=== PATIENT | female | born 1995 | race American Indian/Alaskan Native ===

== ENCOUNTER 2016-11-19 21:04 | Inpatient (IN) | payer OTHER ==
[2016-11-19 22:20] LABS: Basophils % (Auto) 0.9 % (0.0-1.8); Eosinophils % (Auto) 1.2 % (0.0-4.3); Hematocrit 20.8 % (30.3-42.9); Hemoglobin 6.4 gm/dl (10.1-14.3); Mean Corpuscular HGB Conc 31 % (30-34); Mean Corpuscular Volume 75 fl (79-97); Platelet Count 327 K/mm3 (140-440); Red Blood Count 2.77 M/mm3 (3.65-5.03); Red Cell Distribution Width 18.1 % (13.2-15.2); White Blood Count 9.1 K/mm3 (4.5-11.0)
[2016-11-19 22:24] LABS: Mean Corpuscular Hemoglobin 23 pg (28-32)
[2016-11-19 22:31] LABS: INR 1.04 (0.87-1.13)
[2016-11-19 22:32] LABS: BUN/Creatinine Ratio 17.77; Blood Urea Nitrogen 16 mg/dL (7-17); Calcium 8.8 mg/dL (8.4-10.2); Carbon Dioxide 23 mmol/L (22-30); Glucose 108 mg/dL (65-100); Partial Thromboplastin Time 30.5 Sec. (24.2-36.6); Potassium 4.2 mmol/L (3.6-5.0); Sodium 138 mmol/L (137-145)
[2016-11-19 22:45] LABS: Anion Gap 18 mmol/L
[2016-11-20] MEDS ORDERED: NACL 0.9% 500 ML 500 ML IV ONE (02:57)
--- NOTE | 2016-11-20 03:23 | Emergency Department Report ---
HPI - General Chief Complaint: Vaginal Bleeding Time Seen by Provider: 11/20/16 02:44 - HPI HPI: Room 22 The patient is a 21-year-old female presenting with a chief complaint of vaginal bleeding. The patient states she has a history of dysfunctional vaginal bleeding has had heavy vaginal bleeding since May 2016. The patient states she goes to approximate 24 pads per day. She states she came to the emergency department because 4 weeks she has had shortness of breath and for the last 3 days she has had dysuria and rectal pain with bowel movements. Patient states she developed intermittent chest pain today Location: [see above] Duration: [see above] Quality: Pain Severity: Moderate Modifying factors: [see above] Context: [see above] Mode of transportation: [not driving] ED Past Medical Hx - Past Medical History Hx Arthritis: Yes (ra) Hx Headaches / Migraines: Yes Hx Asthma: Yes - Surgical History Past Surgical History?: No - Family History Family history: no significant - Social History Smoking Status: Never Smoker Substance Use Type: None - Medications Home Medications: Home Medications Medication Instructions Recorded Confirmed Last Taken Type ALBUTEROL NEB's [Proventil 0.083%] 2.5 mg IH TID PRN 07/13/14 07/13/14 06/23/14 History Albuterol Sulfate [Proventil HFA] 1 - 2 puff IH Q4H PRN 07/13/14 07/13/14 History Albuterol Sulfate [Ventolin HFA] 2 puff IH Q4H PRN 07/13/14 07/13/14 07/06/14 History Montelukast [Singulair] 10 mg PO QPM 07/13/14 07/13/14 07/11/14 History Naproxen [Naprosyn] 500 mg PO BID 07/13/14 07/13/14 07/08/14 History medroxyPROGESTERone ACETATE 10 mg PO QDAY #5 tablet 07/14/14 Unknown Rx [Provera] ED Review of Systems ROS: Stated complaint: CP/VAGINAL BLEED Other details as noted in HPI Comment: All other systems reviewed and negative Constitutional: denies: chills, fever Eyes: denies: eye pain, eye discharge, vision change ENT: denies: ear pain, throat pain Respiratory: shortness of breath Cardiovascular: chest pain Endocrine: no symptoms reported Gastrointestinal: denies: abdominal pain, nausea, diarrhea Genitourinary: dysuria, abnormal menses Musculoskeletal: denies: back pain, joint swelling, arthralgia Skin: denies: rash, lesions Neurological: denies: headache, weakness, paresthesias Psychiatric: denies: anxiety, depression Hematological/Lymphatic: denies: easy bleeding, easy bruising Physical Exam - Physical Exam Vital Signs: Vital Signs 11/19/16 11/20/16 21:18 03:06 Temperature 98.4 F 98.8 F Pulse Rate 105 H 99 H Respiratory 20 20 Rate Blood Pressure 148/93 Blood Pressure 129/83 [Left] O2 Sat by Pulse 98 100 Oximetry Physical Exam: GENERAL: The patient is well-developed well-nourished female lying on stretcher appearing pale but in no acute distress. [] HEENT: Normocephalic. Atraumatic. Extraocular motions are intact. Patient has moist mucous membranes. NECK: Supple. Trachea midline CHEST/LUNGS: Clear to auscultation. There is no respiratory distress noted. HEART/CARDIOVASCULAR: Regular. There is no tachycardia. There is no gallop rub or murmur. ABDOMEN: Abdomen is soft, with mild discomfort to the lower right pelvis. Patient has normal bowel sounds. There is no abdominal distention. SKIN: There is no rash. There is no edema. There is no diaphoresis. NEURO: The patient is awake, alert, and oriented. The patient is cooperative. The patient has normal speech MUSCULOSKELETAL: There is no evidence of acute injury. PELVIC: Small to moderate amount of dark blood in the vaginal vault ED Course Vital Signs 11/19/16 11/20/16 21:18 03:06 Temperature 98.4 F 98.8 F Pulse Rate 105 H 99 H Respiratory 20 20 Rate Blood Pressure 148/93 Blood Pressure 129/83 [Left] O2 Sat by Pulse 98 100 Oximetry ED Medical Decision Making - Lab Data Result diagrams: 11/19/16 21:51 11/19/16 21:51 Laboratory Tests 11/19/16 11/19/16 11/19/16 21:51 21:51 21:51 WBC 9.1 RBC 2.77 L Hgb 6.4 L Hct 20.8 L MCV 75 L MCH 23 L MCHC 31 RDW 18.1 H Plt Count 327 Lymph % (Auto) 25.6 [place] % (Auto) 8.6 H Eos % (Auto) 1.2 Baso % (Auto) 0.9 Lymph # 2.3 [place] # 0.8 Eos # 0.1 Baso # 0.1 Seg Neutrophils % 63.7 Seg Neutrophils # 5.8 PT 13.5 INR 1.04 APTT 30.5 Sodium 138 Potassium 4.2 Chloride 101.0 Carbon Dioxide 23 Anion Gap 18 BUN 16 Creatinine 0.9 Estimated GFR > 60 BUN/Creatinine Ratio 17.77 Glucose 108 H Calcium 8.8 Troponin T < 0.010 HCG, Qual 11/20/16 11/20/16 00:26 01:15 WBC RBC Hgb Hct MCV MCH MCHC RDW Plt Count Lymph % (Auto) [place] % (Auto) Eos % (Auto) Baso % (Auto) Lymph # [place] # Eos # Baso # Seg Neutrophils % Seg Neutrophils # PT INR APTT Sodium Potassium Chloride Carbon Dioxide Anion Gap BUN Creatinine Estimated GFR BUN/Creatinine Ratio Glucose Calcium Troponin T < 0.010 HCG, Qual Negative Laboratory Tests 11/19/16 11/19/16 11/19/16 21:51 21:51 21:51 WBC 9.1 RBC 2.77 L Hgb 6.4 L Hct 20.8 L MCV 75 L MCH 23 L MCHC 31 RDW 18.1 H Plt Count 327 Lymph % (Auto) 25.6 [place] % (Auto) 8.6 H Eos % (Auto) 1.2 Baso % (Auto) 0.9 Lymph # 2.3 [place] # 0.8 Eos # 0.1 Baso # 0.1 Seg Neutrophils % 63.7 Seg Neutrophils # 5.8 PT 13.5 INR 1.04 APTT 30.5 Sodium 138 Potassium 4.2 Chloride 101.0 Carbon Dioxide 23 Anion Gap 18 BUN 16 Creatinine 0.9 Estimated GFR > 60 BUN/Creatinine Ratio 17.77 Glucose 108 H Calcium 8.8 Troponin T < 0.010 HCG, Qual Urine Color Urine Turbidity Urine pH Ur Specific [place] Urine Protein Urine Glucose (UA) Urine Ketones Urine Blood Urine Nitrite Urine Bilirubin Urine Urobilinogen Ur Leukocyte Esterase Urine WBC (Auto) Urine RBC (Auto) U Epithel Cells (Auto) Urine WBC Clumps Blood Type Antibody Screen Crossmatch 11/20/16 11/20/16 11/20/16 00:26 01:15 03:06 WBC RBC Hgb Hct MCV MCH MCHC RDW Plt Count Lymph % (Auto) [place] % (Auto) Eos % (Auto) Baso % (Auto) Lymph # [place] # Eos # Baso # Seg Neutrophils % Seg Neutrophils # PT INR APTT Sodium Potassium Chloride Carbon Dioxide Anion Gap BUN Creatinine Estimated GFR BUN/Creatinine Ratio Glucose Calcium Troponin T < 0.010 HCG, Qual Negative Urine Color Red Urine Turbidity Turbid Urine pH 6.0 Ur Specific [place] 1.024 Urine Protein 100 mg/dl Urine Glucose (UA) 50 Urine Ketones Tr Urine Blood Lg Urine Nitrite Neg Urine Bilirubin Neg Urine Urobilinogen < 2.0 Ur Leukocyte Esterase Sm Urine WBC (Auto) > 182.0 H Urine RBC (Auto) > 182.0 U Epithel Cells (Auto) 17.0 H Urine WBC Clumps 3+ Blood Type Antibody Screen Crossmatch 11/20/16 11/20/16 03:33 03:33 WBC RBC Hgb Hct MCV MCH MCHC RDW Plt Count Lymph % (Auto) [place] % (Auto) Eos % (Auto) Baso % (Auto) Lymph # [place] # Eos # Baso # Seg Neutrophils % Seg Neutrophils # PT INR APTT Sodium Potassium Chloride Carbon Dioxide Anion Gap BUN Creatinine Estimated GFR BUN/Creatinine Ratio Glucose Calcium Troponin T < 0.010 HCG, Qual Urine Color Urine Turbidity Urine pH Ur Specific [place] Urine Protein Urine Glucose (UA) Urine Ketones Urine Blood Urine Nitrite Urine Bilirubin Urine Urobilinogen Ur Leukocyte Esterase Urine WBC (Auto) Urine RBC (Auto) U Epithel Cells (Auto) Urine WBC Clumps Blood Type A POSITIVE Antibody Screen Negative Crossmatch See Detail - EKG Data -: EKG Interpreted by Me EKG shows normal: sinus rhythm Rate: tachycardia (117 bpm) - EKG Data When compared to previous EKG there are: previous EKG unavailable Interpretation: other (no ischemic changes seen) - Radiology Data Radiology results: report reviewed (pelvic ultrasound), image reviewed (pelvic ultrasound) Pelvic ultrasound (read by radiologist)-there is a small cyst on the left ovary this measures 17 mm. Slightly thickened endometrial pattern near the lower uterine segment cervical canal region. No identifiable masses. - Differential Diagnosis menorrhagia, symptomatic anemia, UTI Critical care attestation.: If time is entered above; I have spent that time in minutes in the direct care of this critically ill patient, excluding procedure time. ED Disposition Clinical Impression: Menorrhagia, Symptomatic anemia, UTI (urinary tract infection), Dysuria Disposition: OP ADMITTED IP TO THIS HOSP Is pt being admited?: Yes Does the pt Need Aspirin: No Condition: Fair Referrals: SAYDA RANGEL [Other] - 3-5 Days Time of Disposition: 05:23 (BARREL TURNER paged)
[2016-11-20 03:46] LABS: Bilirubin,Urine NEG (Negative); Blood,Urine LG (Negative); Ketones,Urine TR mg/dL (Negative); Leukocyte Esterase,Urine SM (Negative); Nitrite,Urine NEG (Negative); RBC,Urine > 182.0 /HPF (0.0-6.0); Urobilinogen,Urine < 2.0 mg/dL (<2.0); WBC,Urine > 182.0 /HPF (0.0-6.0)
[2016-11-20] MEDS ORDERED: ROCEPHIN/NS 1 GM/50 ML 50 ML IV ONE (04:37)
--- NOTE | 2016-11-20 05:07 | Ultrasound Report ---
FINAL REPORT PROCEDURE: US TRANSVAGINAL TECHNIQUE: Real-time transabdominal sonography in multiple planes of the pelvis was performed. The pelvic structures, especially the ovaries were not optimally visualized. Transvaginal sonography was then performed to better evaluate the structures and/or abnormalities described below with image documentation. CPT 32975 and 63667 HISTORY: heavy vaginal bleeding COMPARISON: No prior studies are available for comparison. FINDINGS: UTERUS Size: 7.7 x 3.6 x 4.1 cm. Endometrial thickness: 5 mm. Slightly thickened endometrium near the lower uterine segment and cervical canal region. Orientation: anteverted. Cervix: Normal. Fibroids/masses: None. RIGHT Ovary: 3.3 x 1.9 x 1.9 cm. Appearance: Normal. LEFT Ovary: 3 x 3.2 x 2.8 cm. Appearance: There is a cyst in the left ovary this measures 17 millimeters. Pelvic fluid: Minimal. Other: None. IMPRESSION: There is a small cyst on the left ovary this measures 17 millimeters. Slightly thickened endometrial pattern near the lower uterine segment cervical canal region. No identifiable mass.
--- NOTE | 2016-11-20 05:07 | Ultrasound Report ---
FINAL REPORT PROCEDURE: Pelvic ultrasound, transabdominal and transvaginal TECHNIQUE: Real-time transabdominal sonography in multiple planes of the pelvis was performed. The pelvic structures, especially the ovaries were not optimally visualized. Transvaginal sonography was then performed to better evaluate the structures and/or abnormalities described below with image documentation. CPT 02415 and 76048 HISTORY: heavy vaginal bleeding COMPARISON: No prior studies are available for comparison. FINDINGS: UTERUS Size: 7.7 x 3.6 x 4.1 cm. Endometrial thickness: 5 mm. Slightly thickened endometrium near the lower uterine segment and cervical canal region. Orientation: anteverted. Cervix: Normal. Fibroids/masses: None. RIGHT Ovary: 3.3 x 1.9 x 1.9 cm. Appearance: Normal. LEFT Ovary: 3 x 3.2 x 2.8 cm. Appearance: There is a cyst in the left ovary this measures 17 millimeters. Pelvic fluid: Minimal. Other: None. IMPRESSION: There is a small cyst on the left ovary this measures 17 millimeters. Slightly thickened endometrial pattern near the lower uterine segment cervical canal region. No identifiable mass. PROCEDURE: TECHNIQUE: HISTORY: COMPARISON: FINDINGS: IMPRESSION:
--- NOTE | 2016-11-20 09:12 | Short Stay Summary ---
Short Stay Documentation Date of service: 11/20/16 Narrative H&P: 21y/o G0 presents with abnormal uterine bleeding. She reports heavy irregular cycles. She often times uses > 20 pads during a 24hr period. She denies being on contraception at this time. The patient was evaluated in the ED with the complaint of dizziness. She was found to be tachycardic and anemic. - History Principal diagnosis: symptomatic anemia H&P: obtained from office Past Medical History: other (asthma; Rheumatoid arthritis) Past Surgical History: No surgical history Social history: single - Allergies and Medications Current Medications: Allergies Sulfa (Sulfonamide Antibiotics) Allergy (Verified 11/19/16 21:17) Angioedema seafood Allergy (Uncoded 07/13/14 20:21) Swelling Home Medications Medication Instructions Recorded Confirmed Last Taken Type ALBUTEROL NEB's [Proventil 0.083%] 2.5 mg IH TID PRN 07/13/14 07/13/14 06/23/14 History Albuterol Sulfate [Proventil HFA] 1 - 2 puff IH Q4H PRN 07/13/14 07/13/14 History Albuterol Sulfate [Ventolin HFA] 2 puff IH Q4H PRN 07/13/14 07/13/14 07/06/14 History Montelukast [Singulair] 10 mg PO QPM 07/13/14 07/13/14 07/11/14 History Naproxen [Naprosyn] 500 mg PO BID 07/13/14 07/13/14 07/08/14 History medroxyPROGESTERone ACETATE 10 mg PO QDAY #5 tablet 07/14/14 Unknown Rx [Provera] - Physical exam General appearance: no acute distress Integumentary: no rash HEENT: Atraumatic Lungs: Clear to auscultation Breasts: deferred Heart: Other (tachycardia) - Hospital course Hospital course: The patient was admitted through the emergency department secondary to the complaint of dizziness and weakness. Laboratories reveal evidence of anemia. Her vital signs were consistent with tachycardia. The patient reported a history of excessive vaginal bleeding. The patient was admitted for observation and received 2 units of packed red blood cells. She noticed significant improvement in her symptoms after the transfusion. The patient was discharged all and instructed to follow-up in [facility] for further management of her abnormal uterine bleeding. - Disposition Condition at discharge: Good Disposition: DISCHARGED TO HOME OR SELFCARE Short Stay Discharge Plan Activity: no restrictions Diet: regular Additional Instructions: The patient may follow up with Dr. Strickland at [facility] in 2 weeks Prescriptions: Docusate Sodium [Colace] 100 mg PO BID PRN #60 capsule PRN Reason: Constipation Ferrous Sulfate [Feosol 325 MG tab] 325 mg PO TID #90 tablet
[2016-11-20] MEDS ORDERED: NACL 0.9% 500 ML IV NR (10:00)
[2016-11-20] MEDS ORDERED: TYLENOL PO PRN (12:08)
[2016-11-20 16:08] VITALS: BP 134/69
[2016-11-20 17:07] LABS: Hematocrit 29.6 % (30.3-42.9); Hemoglobin 9.5 gm/dl (10.1-14.3)
== END 2016-11-20 18:00 | disposition home or self-care (01) | DRG 760 ==
LOC: ED 21:04 → OB 11-20 05:29
PROVIDERS: ADMIT Obstetrics & Gynecology; ATTEND Obstetrics & Gynecology
PROC: 30233N1 Transfusion of Nonautologous Red Blood Cells into Peripheral Vein, Percutaneous Approach (ICD-10-PCS; principal; 2016-11-20)
DX: N92.0 Excessive and frequent menstruation with regular cycle (principal); N39.0 Urinary tract infection, site not specified; D64.9 Anemia, unspecified; G43.909 Migraine, unspecified, not intractable, without status migrainosus; J45.909 Unspecified asthma, uncomplicated; N93.9 Abnormal uterine and vaginal bleeding, unspecified; M06.9 Rheumatoid arthritis, unspecified; Z88.2 Allergy status to sulfonamides; Z91.013 Allergy to seafood; Z79.899 Other long term (current) drug therapy
CPT/HCPCS: 36415; 36430; 76830; 76856; 80048; 81001; 84484; 84703; 85014; 85018; 85025; 85610; 85730; 86850; 86900; 86901; 86920; 93005; 93010; 96365; J0696; J7040; P9016

== ENCOUNTER 2017-04-22 06:40 | Day surgery (SDC) | payer OTHER ==
[2017-04-22] MEDS ORDERED: NACL 0.9% 1000 ML 1,000 ML ONE ×3 (07:38→07:39)
[2017-04-22 08:23] LABS: Hematocrit 36.6 % (30.3-42.9); Hemoglobin 11.7 gm/dl (10.1-14.3)
[2017-04-22] MEDS ORDERED: DILAUDID IV PRN (08:29)
[2017-04-22] MEDS ORDERED: ZOFRAN IV PRN (08:29)
--- NOTE | 2017-04-22 08:30 | Anesthesia Consultation ---
Anesthesia Consult and Med Hx Date of service: 04/22/17 - Airway Anesthetic Teeth Evaluation: Good ROM Head & Neck: Adequate Mental/Hyoid Distance: Adequate Mallampati Class: Class II Intubation Access Assessment: Probably Good - Pulmonary Exam CTA: Yes - Cardiac Exam Cardiac Exam: RRR - Pre-Operative Health Status ASA Pre-Surgery Classification: ASA2 Proposed Anesthetic Plan: General - Pulmonary Hx Asthma: Yes - Cardiovascular System Hx Hypertension: No - Central Nervous System Hx Neuromuscular Disorder: Yes (rheumatoid arthritis) Hx Psychiatric Problems: No - Hematic Hx Anemia: Yes Hx Sickle Cell Disease: No - Other Systems Hx Alcohol Use: Yes (OCCASIONALLY) Hx Substance Use: No Hx Cancer: No Hx Obesity: Yes
--- NOTE | 2017-04-22 08:30 | Anesthesia Day of Surgery ---
Anesthesia Day of Surgery - Day of Surgery Patient Examined: Yes Patient H&P Reviewed: Yes Patient is NPO: Yes
--- NOTE | 2017-04-22 08:44 | Short Stay Summary ---
Short Stay Documentation Date of service: 04/22/17 Narrative H&P: 22y/o G0 with dysfunctional uterine bleeding. Patient has attempted multiple medical therapies. She has had to be admitted for transfusion of blood products for anemia. She has been diagnosed with a pituitary adenoma. She has slightly elevated prolactin levels. - History Principal diagnosis: DUB Past Medical History: other (asthma; RA; pituitary adenoma; thyroid disorder) Past Surgical History: No surgical history Social history: single - Allergies and Medications Current Medications: Allergies Sulfa (Sulfonamide Antibiotics) Allergy (Verified 11/19/16 21:17) Angioedema seafood Allergy (Uncoded 07/13/14 20:21) Swelling Home Medications Medication Instructions Recorded Confirmed Last Taken Type ALBUTEROL NEB's [Proventil 0.083%] 2.5 mg IH TID PRN 07/13/14 04/22/17 11/10/16 21:00 History Albuterol Sulfate [Proventil HFA] 1 - 2 puff IH Q4H PRN 07/13/14 04/22/17 09:00 History Albuterol Sulfate [Ventolin HFA] 2 puff IH Q4H PRN 07/13/14 04/22/17 11/10/16 History 2100 Montelukast [Singulair] 10 mg PO QPM 07/13/14 04/22/17 04/20/17 21:00 History Naproxen [Naprosyn] 500 mg PO PRN 07/13/14 04/22/17 11/10/16 09:00 History Docusate Sodium [Colace] 100 mg PO BID PRN #60 capsule 11/20/16 04/22/17 09:00 Rx Ferrous Sulfate [Feosol 325 MG tab] 325 mg PO TID #90 tablet 11/20/16 04/22/17 04/21/17 19:00 Rx Active Medications Famotidine (Pepcid) 20 mg PO PREOP NR Hydromorphone HCl (Dilaudid) 0.5 mg IV Q10MIN PRN PRN Reason: Pain , Severe (7-10) Stop: 04/25/17 08:30 Lactated Ringer's (Lactated Ringers) 1,000 mls @ 75 mls/hr IV DIRECT ROSA Midazolam HCl (Versed) 2 mg IV PREOP NR Stop: 04/22/17 23:59 Ondansetron HCl (Zofran) 4 mg IV ONCE PRN PRN Reason: Nausea And Vomiting Stop: 04/22/17 08:30 - Physical exam General appearance: no acute distress Integumentary: no rash HEENT: Atraumatic Lungs: Clear to auscultation Breasts: deferred Heart: Regular rate Gastrointestinal: normal Female Genitourinary: deferred - Brief post op/procedure progress note Date of procedure: 04/22/17 Pre-op diagnosis: dysfunctional uterine bleeding Post-op diagnosis: same Procedure: hysteroscopy dilation and curettage polyp removal insertion of Mirena IUD Anesthesia: GETA Surgeon: TEA GÓMEZ Estimated blood loss: minimal Pathology: list (endometrial polyp; endometrial curettings) Specimen disposition: to lab - Hospital course Hospital course: The patient was admitted the day of surgery and underwent a hysteroscopy dilatation and curettage and placement of a Mirena IUD. Please see operative note for details of surgery. Postoperative course was uneventful. - Disposition Condition at discharge: Good Disposition: DC-01 TO HOME OR SELFCARE Short Stay Discharge Plan Activity: other (pelvic rest for 2 weeks) Diet: regular Additional Instructions: Schedule follow-up with Dr. Strickland in 2 weeks Prescriptions: Ibuprofen [Motrin] 800 mg PO Q8HR PRN #60 tablet PRN Reason: Pain oxyCODONE /ACETAMINOPHEN [Percocet 5/325] 1 tab PO Q6HR PRN #30 tablet PRN Reason: Pain
[2017-04-22] MEDS ORDERED: DIPRIVAN 10 MG/ML IV ONE (08:45)
[2017-04-22] MEDS ORDERED: XYLOCAINE MPF 2% ONE (08:46)
[2017-04-22] MEDS ORDERED: LACTATED RINGERS 1,000 ML IV SCH (09:00)
[2017-04-22] MEDS ORDERED: NACL 0.9% 1000 ML 1,000 ML IV SCH (09:00)
[2017-04-22] MEDS ORDERED: VERSED IV NR (09:00)
[2017-04-22] MEDS ORDERED: PEPCID PO NR (09:00)
[2017-04-22] MEDS ORDERED: DECADRON ONE (09:23)
[2017-04-22] MEDS ORDERED: ZOFRAN ONE (09:23)
[2017-04-22] MEDS ORDERED: SORBITOL-MANNITOL IRRIG IR ONE (09:45)
--- NOTE | 2017-04-22 10:16 | Operative Report ---
Operative Report Operative Report: Date of surgery: 04/22/2017 Preoperative diagnosis: Dysfunctional uterine bleeding refractive to medical management Postoperative diagnosis: Same as above; endometrial polyps Procedure: Operative Hysteroscopy; dilatation and curettage; removal of endometrial polyp; insertion of Mirena intrauterine device Surgeon: Mireille Strickland M.D. Anesthesia: General endotracheal anesthesia Estimated blood loss: Minimal Findings: 2 small endometrial polyps near the right ostia and one small polyp near the left ostia Pathology: Endometrial polyp; endometrial curettings Indication: 22-year-old G0 with a history of dysfunctional uterine bleeding. Medical management has been attempted with the patient however unsuccessful. The patient has had to be transfused in the past secondary to menorrhagia. Procedure: The patient was taken to the operating room and given general endotracheal anesthesia without complication. The patient was prepped and draped in a normal sterile fashion. A bivalve speculum placed in the patient's vagina single-tooth tenaculum was placed on the anterior lip of the cervix. The uterus was sounded approximately 7 cm. The cervical os was dilated with graduated dilators. The hysteroscope was then inserted and insufflation of the endometrial cavity was performed with normal saline. General survey revealed evidence of endometrial polyps involving the ostia of the fallopian tube. An attempt was made to remove the polyps with the forceps however was unsuccessful. The operative hysteroscope was then placed and the polyps were retracted with the wire loop. A sharp curettage of the endometrial surface was performed. Mirena intrauterine device was then inserted without complication. The string was shortened approximately to 3cm. The vaginal instruments were then removed atraumatically. The patient was then successfully extubated and taken to the recovery room in stable condition. All sponge laps and needle counts were correct 2.
--- NOTE | 2017-04-22 10:24 | Post Anesthesia Evaluation ---
- Post Anesthesia Evaluation Patient Participated: Yes Airway Patent: Yes Stable Respiratory Function: Yes Nausea/Vomiting: No Temp > 96.8F: Yes Pain Manageable: Yes Adequeate Hydration: Yes Anesthesia Complications: No
[2017-04-22 10:47] VITALS: BP 152/90
[2017-04-22] MEDS ORDERED: PERCOCET 5/325 PO SCH (11:27)
== END 2017-04-22 11:52 | disposition home or self-care (01) ==
LOC: OR 06:40
PROVIDERS: ATTEND Obstetrics & Gynecology
DX: N84.0 Polyp of corpus uteri (principal); J45.909 Unspecified asthma, uncomplicated; M06.9 Rheumatoid arthritis, unspecified; E66.9 Obesity, unspecified; Z88.2 Allergy status to sulfonamides; Z91.013 Allergy to seafood; Z72.89 Other problems related to lifestyle; Z79.899 Other long term (current) drug therapy
CPT/HCPCS: 36415; 58300; 58558; 81025; 85014; 85018; 88305; J1100; J1170; J2250; J2405; J2704; J7030

== ENCOUNTER 2017-07-25 10:58 | Emergency (ER) | payer SELFPAY ==
[2017-07-25 11:13] VITALS: BP 138/83
== END 2017-07-25 17:59 | disposition left against medical advice (07) ==
LOC: ED 10:58
DX: R10.9 Unspecified abdominal pain (principal); Z53.21 Procedure and treatment not carried out due to patient leaving prior to being seen by health care provider

== ENCOUNTER 2017-10-19 17:56 | Emergency (ER) | payer SELFPAY | END 2017-10-19 20:20 | disposition left against medical advice (07) | LOC: ED 17:56 | DX: R10.9 Unspecified abdominal pain (principal); R11.2 Nausea with vomiting, unspecified; Z53.21 Procedure and treatment not carried out due to patient leaving prior to being seen by health care provider ==

== ENCOUNTER 2018-02-28 14:45 | Emergency (ER) | payer SELFPAY | END 2018-02-28 17:50 | disposition left against medical advice (07) | LOC: ED 14:45 | DX: N89.8 Other specified noninflammatory disorders of vagina (principal); Z53.21 Procedure and treatment not carried out due to patient leaving prior to being seen by health care provider ==

== ENCOUNTER 2018-03-10 13:33 | Emergency (ER) | payer SELFPAY ==
[2018-03-10] MEDS ORDERED: MOTRIN PO ONE (17:54)
[2018-03-10] MEDS ORDERED: TYLENOL PO ONE (17:54)
[2018-03-10 19:13] VITALS: BP 127/77
--- NOTE | 2018-03-10 19:14 | Emergency Department Report ---
Blank Doc - Documentation Documentation: 3. Old female that comes to the ER with 2 days of intermittent vaginal bleeding. She also was at 2 weeks of intermittent suprapubic abdominal pain. The pain is not affected by food or urination. Does endorse intermittent nausea and vomiting. Patient has not had significant enough vaginal bleeding to require a pad. She had an IUD placed a year ago. There is evidence of pain before. Patient will have urine studies performed. If the cause is not now, likely she will need a transvaginal ultrasound with a pelvic exam to rule out of pelvic etiology.
[2018-03-10 19:49] LABS: Bilirubin,Urine NEG (Negative); Blood,Urine SM (Negative); Color,Urine Yellow (Yellow); Mucus,Urine FEW /HPF; Protein,Urine <15 mg/dL mg/dL (Negative); Urobilinogen,Urine < 2.0 mg/dL (<2.0)
[2018-03-10 19:51] LABS: HCG Qualitative,Urine Negative (Negative)
--- NOTE | 2018-03-10 20:14 | Emergency Department Report ---
HPI - General Chief Complaint: Abdominal Pain Time Seen by Provider: 03/10/18 17:52 - HPI HPI: Patient is a 22-year-old female who presents to ED complaining of light intermittent vaginal bleeding for the past 2 days. Patient states that she had a IUD device placed last year in April and usually does not get her cycle. Patient states it is ago she started some light bleeding. Palpation admitted some suprapubic pain like cramps. Patient states that she made an appointment to go see her HEAD MACHINIST but was not seen due to her not having insurance. Patient states she could not feel her IUD strings and is unsure if it still in place. She denies dysuria, nausea vomiting and abdominal pain, chest pain shortness of breath or any other problems. ED Past Medical Hx - Past Medical History Hx Hypertension: No Hx Sickle Cell Disease: No Hx Arthritis: Yes Hx Headaches / Migraines: Yes (MIGRAINES) Hx Asthma: Yes Hx HIV: No - Surgical History Additional Surgical History: Mirena placed on April 22, 2017 - Social History Smoking Status: Never Smoker Substance Use Type: None - Medications Home Medications: Home Medications Medication Instructions Recorded Confirmed Last Taken Type ALBUTEROL NEB's [Proventil 0.083%] 2.5 mg IH TID PRN 07/13/14 04/22/17 11/10/16 21:00 History Albuterol Sulfate [Proventil HFA] 1 - 2 puff IH Q4H PRN 07/13/14 04/22/17 09:00 History Albuterol Sulfate [Ventolin HFA] 2 puff IH Q4H PRN 07/13/14 04/22/17 11/10/16 History 2100 Montelukast [Singulair] 10 mg PO QPM 07/13/14 04/22/17 04/20/17 21:00 History Naproxen [Naprosyn] 500 mg PO PRN 07/13/14 04/22/17 11/10/16 09:00 History Docusate Sodium [Colace] 100 mg PO BID PRN #60 capsule 11/20/16 04/22/17 09:00 Rx Ferrous Sulfate [Feosol 325 MG tab] 325 mg PO TID #90 tablet 11/20/16 04/22/17 04/21/17 19:00 Rx oxyCODONE /ACETAMINOPHEN [Percocet 1 tab PO Q6HR PRN #30 tablet 04/22/17 Unknown Rx 5/325] Ciprofloxacin HCl [Ciprofloxacin 500 mg PO Q12H #14 tab 03/10/18 Unknown Rx TAB] Ibuprofen [Motrin 800 MG tab] 800 mg PO Q8HR PRN #60 tablet 03/10/18 Unknown Rx ED Review of Systems ROS: Stated complaint: ABD PAIN Other details as noted in HPI Constitutional: denies: chills, fever Eyes: denies: eye pain, eye discharge, vision change ENT: denies: ear pain, throat pain Respiratory: denies: cough, shortness of breath, wheezing Cardiovascular: denies: chest pain, palpitations Endocrine: no symptoms reported Gastrointestinal: denies: abdominal pain, nausea, diarrhea Genitourinary: denies: urgency, dysuria, discharge Musculoskeletal: denies: back pain, joint swelling, arthralgia Skin: denies: rash, lesions Neurological: denies: headache, weakness, paresthesias Psychiatric: denies: anxiety, depression Hematological/Lymphatic: denies: easy bleeding, easy bruising Physical Exam - Physical Exam Vital Signs: Vital Signs 03/10/18 03/10/18 03/10/18 13:53 18:07 19:12 Temperature 98.2 F Pulse Rate 90 80 Respiratory 17 18 Rate Blood Pressure 127/90 Blood Pressure 127/77 [Right] O2 Sat by Pulse 96 Oximetry Physical Exam: GENERAL: Alert and oriented x3, no apparent distress, Normal Gait, atraumatic. HEAD: Head is normocephalic and a-traumatic. NECK: Supple. Non edematous, No carotid bruits. No lymphadenopathy or thyromegaly. No C-spine tenderness LUNGS: Symetrical with respiration, No wheezing, no rales or crackles, CTAB. HEART: S1, S2 present, regular rate and rhythm without murmur, no rubs, no gallops. Non tender to palpation ABDOMEN: No organomegaly was noted,Positive bowel sounds, soft, and non- distended. . Nontender to palpation on all Quadrants, NO CVA tenderness. GENITOURINARY: External genitalia without erythema, exudate or discharge. Vaginal vault is with mild discharge. Cervix is of normal color without lesion. Cervical os is closed. No bleeding noted. Uterus is noted to be of normal size and nontender. No cervical motion tenderness. No masses are palpated. samples collected, iud strings visualized. ED Course Vital Signs 03/10/18 03/10/18 03/10/18 13:53 18:07 19:12 Temperature 98.2 F Pulse Rate 90 80 Respiratory 17 18 Rate Blood Pressure 127/90 Blood Pressure 127/77 [Right] O2 Sat by Pulse 96 Oximetry ED Medical Decision Making - Medical Decision Making 23-year-old female presents with UTI ED course on urinalysis, urine test obtained. Urinalys shows moderate leukocyte esterase, and test negative E and chlamydia cultures sent. Wet prep negative I discussed his findings with the patient. I discussed the patient she'll be sent home on antibiotics for cystitis. I discussed to follow up with HEAD MACHINIST doctor. I discussed the patient that her IUD is still intac and no bleeding is noted. I discussed the patient if any worsening symptoms, return to the ED otherwise follow-up with HEAD MACHINIST as referred. Vital signs are normal patient is in no acute distress. Critical care attestation.: If time is entered above; I have spent that time in minutes in the direct care of this critically ill patient, excluding procedure time. ED Disposition Clinical Impression: UTI (urinary tract infection) Disposition: DC-01 TO HOME OR SELFCARE Is pt being admited?: No Does the pt Need Aspirin: No Condition: Stable Instructions: Urinary Tract Infection in Women (ED), Dysuria (ED), Abdominal Pain (ED) Additional Instructions: Make sure to follow up with the HEAD MACHINIST as discussed. Take all your medications as you've been prescribed. If you have any worsening symptoms or develop new symptoms please return to ED immediately. Prescriptions: Ciprofloxacin HCl [Ciprofloxacin TAB] 500 mg PO Q12H #14 tab Ibuprofen [Motrin 800 MG tab] 800 mg PO Q8HR PRN #60 tablet PRN Reason: Pain Referrals: [facility] [Other] - 3-5 Days Forms: Accompanied Note, Work/School Release Form(ED) Time of Disposition: 23:39
== END 2018-03-11 00:06 | disposition home or self-care (01) ==
LOC: ED 13:33
DX: N39.0 Urinary tract infection, site not specified (principal); M19.90 Unspecified osteoarthritis, unspecified site; G43.909 Migraine, unspecified, not intractable, without status migrainosus; J45.909 Unspecified asthma, uncomplicated; Z91.013 Allergy to seafood; Z88.2 Allergy status to sulfonamides
CPT/HCPCS: 81001; 81025; 87210; 87591; 99284

== ENCOUNTER 2018-04-13 19:06 | Emergency (ER) | payer SELFPAY ==
[2018-04-13 19:34] VITALS: BP 151/100
[2018-04-13 19:56] LABS: Hematocrit 40.6 % (30.3-42.9); Hemoglobin 13.7 gm/dl (10.1-14.3); Mean Corpuscular HGB Conc 34 % (30-34); Mean Corpuscular Hemoglobin 32 pg (28-32); Mean Corpuscular Volume 93 fl (79-97); Platelet Count 208 K/mm3 (140-440); Red Blood Count 4.35 M/mm3 (3.65-5.03)
[2018-04-13 20:08] LABS: BUN/Creatinine Ratio 15; Blood Urea Nitrogen 12 mg/dL (7-17); Calcium 9.1 mg/dL (8.4-10.2); Hemolysis Index 5
[2018-04-14 01:16] LABS: Bacteria,Urine 2+ /HPF (Negative); Bilirubin,Urine NEG (Negative); Blood,Urine LG (Negative); Color,Urine Yellow (Yellow); Mucus,Urine FEW /HPF; Protein,Urine <15 mg/dL mg/dL (Negative); Urobilinogen,Urine < 2.0 mg/dL (<2.0)
== END 2018-04-13 22:24 | disposition left against medical advice (07) ==
LOC: ED 19:06
DX: N93.9 Abnormal uterine and vaginal bleeding, unspecified (principal); R10.2 Pelvic and perineal pain; Z53.21 Procedure and treatment not carried out due to patient leaving prior to being seen by health care provider
CPT/HCPCS: 36415; 80048; 81001; 84702; 85027; 86900; 86901

== ENCOUNTER 2018-04-25 11:57 | Emergency (ER) | payer SELFPAY ==
[2018-04-25 12:14] VITALS: BP 130/76
[2018-04-25 12:55] LABS: Hematocrit 37.9 % (30.3-42.9); Hemoglobin 12.7 gm/dl (10.1-14.3); Mean Corpuscular HGB Conc 33 % (30-34); Mean Corpuscular Hemoglobin 31 pg (28-32); Mean Corpuscular Volume 93 fl (79-97); Platelet Count 169 K/mm3 (140-440); Red Blood Count 4.08 M/mm3 (3.65-5.03); Red Cell Distribution Width 13.7 % (13.2-15.2)
[2018-04-25 12:59] LABS: Bacteria,Urine 1+ /HPF (Negative); Bilirubin,Urine NEG (Negative); Blood,Urine LG (Negative); Color,Urine Yellow (Yellow); Mucus,Urine 2+ /HPF; Urobilinogen,Urine < 2.0 mg/dL (<2.0)
--- NOTE | 2018-04-25 13:05 | Emergency Department Report ---
ED Female HPI - General Chief complaint: Urogenital-Female Stated complaint: BLACK STOOL WHEN URINATING, VOMIT AND WEAKNESS Time Seen by Provider: 04/25/18 12:59 Source: patient Mode of arrival: Ambulatory Limitations: No Limitations - History of Present Illness Complaint: pelvic pain, other (black urine dark urine denies like stool denies blood in stool) -: week(s) (2) Radiation: non-radiating Severity: mild Quality: cramping, other (pelvic cramping) Consistency: constant Improves with: none Worsens with: none Are you Now?: No - Related Data Home Medications Medication Instructions Recorded Confirmed Last Taken ALBUTEROL NEB's [Proventil 0.083%] 2.5 mg IH TID PRN 07/13/14 04/22/17 11/10/16 21:00 Albuterol Sulfate [Proventil HFA] 1 - 2 puff IH Q4H PRN 07/13/14 04/22/17 09:00 Albuterol Sulfate [Ventolin HFA] 2 puff IH Q4H PRN 07/13/14 04/22/17 11/10/16 2100 Montelukast [Singulair] 10 mg PO QPM 07/13/14 04/22/17 04/20/17 21:00 Naproxen [Naprosyn] 500 mg PO PRN 07/13/14 04/22/17 11/10/16 09:00 Previous Rx's Medication Instructions Recorded Last Taken Type Docusate Sodium [Colace] 100 mg PO BID PRN #60 capsule 11/20/16 04/15/17 09:00 Rx Ferrous Sulfate [Feosol 325 MG tab] 325 mg PO TID #90 tablet 11/20/16 04/21/17 19:00 Rx oxyCODONE /ACETAMINOPHEN [Percocet 1 tab PO Q6HR PRN #30 tablet 04/22/17 Unknown Rx 5/325] Ciprofloxacin HCl [Ciprofloxacin 500 mg PO Q12H #14 tab 03/10/18 Unknown Rx TAB] Ibuprofen [Motrin 800 MG tab] 800 mg PO Q8HR PRN #60 tablet 03/10/18 Unknown Rx Cephalexin [Keflex] 500 mg PO QID 7 Days #28 capsule 04/25/18 Unknown Rx Phenazopyridine [Pyridium] 200 mg PO TID 2 Days #6 tab 04/25/18 Unknown Rx Allergies Allergy/AdvReac Type Severity Reaction Status Date / Time Sulfa (Sulfonamide Allergy Angioedema Verified 11/19/16 21:17 Antibiotics) seafood Allergy Swelling Uncoded 07/13/14 20:21 ED Review of Systems ROS: Stated complaint: BLACK STOOL WHEN URINATING, VOMIT AND WEAKNESS Other details as noted in HPI Constitutional: no symptoms reported, malaise. denies: fever Respiratory: denies: cough Cardiovascular: denies: chest pain Gastrointestinal: abdominal pain, nausea, vomiting ED Past Medical Hx - Past Medical History Hx Hypertension: No Hx Sickle Cell Disease: No Hx Arthritis: Yes Hx Headaches / Migraines: Yes (MIGRAINES) Hx Asthma: Yes Hx HIV: No Additional medical history: blood transfusion 2017- r/t disfunctional urterine bleeding//does not have periods - Surgical History Additional Surgical History: Mirena placed on April 22, 2017-mirena removed march 2018- - Social History Smoking Status: Never Smoker Substance Use Type: None - Medications Home Medications: Home Medications Medication Instructions Recorded Confirmed Last Taken Type ALBUTEROL NEB's [Proventil 0.083%] 2.5 mg IH TID PRN 07/13/14 04/22/17 11/10/16 21:00 History Albuterol Sulfate [Proventil HFA] 1 - 2 puff IH Q4H PRN 07/13/14 04/22/17 09:00 History Albuterol Sulfate [Ventolin HFA] 2 puff IH Q4H PRN 07/13/14 04/22/17 11/10/16 History 2100 Montelukast [Singulair] 10 mg PO QPM 07/13/14 04/22/17 04/20/17 21:00 History Naproxen [Naprosyn] 500 mg PO PRN 07/13/14 04/22/17 11/10/16 09:00 History Docusate Sodium [Colace] 100 mg PO BID PRN #60 capsule 11/20/16 04/22/17 09:00 Rx Ferrous Sulfate [Feosol 325 MG tab] 325 mg PO TID #90 tablet 11/20/16 04/22/17 04/21/17 19:00 Rx oxyCODONE /ACETAMINOPHEN [Percocet 1 tab PO Q6HR PRN #30 tablet 04/22/17 Unknown Rx 5/325] Ciprofloxacin HCl [Ciprofloxacin 500 mg PO Q12H #14 tab 03/10/18 Unknown Rx TAB] Ibuprofen [Motrin 800 MG tab] 800 mg PO Q8HR PRN #60 tablet 03/10/18 Unknown Rx Cephalexin [Keflex] 500 mg PO QID 7 Days #28 capsule 04/25/18 Unknown Rx Phenazopyridine [Pyridium] 200 mg PO TID 2 Days #6 tab 04/25/18 Unknown Rx ED Physical Exam - General Limitations: No Limitations General appearance: alert, in no apparent distress - Head Head exam: Present: atraumatic, normocephalic - Eye Eye exam: Present: normal appearance - ENT ENT exam: Present: mucous membranes moist - Neck Neck exam: Present: normal inspection. Absent: tenderness, meningismus - Respiratory Respiratory exam: Present: normal lung sounds bilaterally. Absent: respiratory distress, wheezes, rales, rhonchi - Cardiovascular Cardiovascular Exam: Present: regular rate, normal rhythm, normal heart sounds. Absent: systolic murmur, diastolic murmur, rubs, gallop - GI/Abdominal GI/Abdominal exam: Present: soft, normal bowel sounds. Absent: distended, tenderness, guarding, rebound - Extremities Exam Extremities exam: Present: normal inspection - Back Exam Back exam: Present: normal inspection - Neurological Exam Neurological exam: Present: alert, oriented X3 - Psychiatric Psychiatric exam: Present: normal affect, normal mood - Skin Skin exam: Present: warm, dry, intact, normal color. Absent: rash ED Course Vital Signs 04/25/18 12:08 Temperature 98.9 F Pulse Rate 79 Respiratory 18 Rate Blood Pressure 130/76 O2 Sat by Pulse 99 Oximetry ED Medical Decision Making - Lab Data Result diagrams: 04/25/18 12:41 Laboratory Results - last 24 hr 04/25/18 12:24 Urine Bilirubin Neg Urine RBC (Auto) 6.0 U Epithel Cells (Auto) 24.0 H Laboratory Results - last 24 hr 04/25/18 12:24 Urine Bilirubin Neg Urine RBC (Auto) 6.0 U Epithel Cells (Auto) 24.0 H Laboratory Results - last 24 hr 04/25/18 12:24 Urine Bilirubin Neg Urine RBC (Auto) 6.0 U Epithel Cells (Auto) 24.0 H - Medical Decision Making Ms. Sellers presents with dark urine and suprapubic pain. No history of strenuous exercise or heat exhaustion. Patient denies vaginal discharge. I do not suspect PID. She does have pyuria indicative of UTI. I have prescribed Keflex and Pyridium Critical care attestation.: If time is entered above; I have spent that time in minutes in the direct care of this critically ill patient, excluding procedure time. ED Disposition Clinical Impression: UTI (urinary tract infection) Disposition: TO HOME OR SELFCARE Is pt being admited?: No Does the pt Need Aspirin: No Condition: Stable Instructions: Urinary Tract Infection in Women (ED) Prescriptions: Cephalexin [Keflex] 500 mg PO QID 7 Days #28 capsule Phenazopyridine [Pyridium] 200 mg PO TID 2 Days #6 tab Referrals: [facility] [Outside] - 3-5 Days Time of Disposition: 13:10
[2018-04-25 13:07] LABS: HCG Qualitative,Urine Negative (Negative)
[2018-04-25 13:25] LABS: BUN/Creatinine Ratio 11; Blood Urea Nitrogen 10 mg/dL (7-17); Hemolysis Index 4
== END 2018-04-25 13:19 | disposition home or self-care (01) ==
LOC: ED 11:57
DX: N39.0 Urinary tract infection, site not specified (principal); M19.90 Unspecified osteoarthritis, unspecified site; G43.909 Migraine, unspecified, not intractable, without status migrainosus; Z88.2 Allergy status to sulfonamides; Z91.013 Allergy to seafood
CPT/HCPCS: 36415; 80048; 81001; 81025; 85027